=== PATIENT | male | born 1960 ===

== ENCOUNTER → 2021-09-19 | Outpatient (CLI) | payer OTHER ==
[~2021-09-19] MED LIST: CREAM; CYCL10 PO; HYDACE5325; IBUP800; IBUPROFEN200 MG PO; NAPR500 PO; OXYACE5T; OXYACE5T PO; Pepcid40 MG PO; Sucralfate1 GM PO
[2021-09-19 14:23] LABS: Alanine Aminotransfer (ALT/SGP 35 U/L (12-78); Albumin, Blood 3.9 g/dL (3.4-5.0); Alk Phos 99 U/L (50-136); Anion Gap 2 mmol/L (6-16); Aspartate Aminotrans (AST/SGOT 31 U/L (12-37); Bilirubin, Total 0.5 mg/dL (0.1-1.0); Blood Urea Nitrogen 15 mg/dL (8-24); CO2, Blood 30 mmol/L (21-32); Calcium, Blood 9.2 mg/dL (8.5-10.1); Chloride, Blood 109 mmol/L (98-108); Creatinine, Blood 0.94 mg/dL (0.60-1.20); Free Thyroxine 0.89 ng/dL (0.70-1.60); Globulin, Blood 3.9 g/dL (2.2-4.0); Glomerular Filtration Rate >60 (60-); Glucose, Blood 97 mg/dL (70-99); Sodium, Blood 141 mmol/L (136-145); Total Protein, Blood 7.8 g/dL (6.4-8.2)
[2021-09-19 14:24] LABS: CHOL/HDL RATIO 2.7; Cholesterol 153 mg/dL (50-200); HDL Cholesterol 56 mg/dL (>39); LDL/HDL RATIO 1.5; Low Density Lipoprotein Chol 82 mg/dL (0-110); Triglycerides 74 mg/dL (30-160); Very Low Density Lipoprot Chol 14 mg/dL (6-32)
== END | disposition home or self-care (01) ==
LOC: LAB 09:40 → LAB SHORT 09:40
PROVIDERS: Family Medicine
DX: K59.09 Other constipation (principal); R07.9 Chest pain, unspecified
CPT/HCPCS: 80053; 80061; 84439; 84443; 84481

== ENCOUNTER 2024-02-21 13:02 | Day surgery (SDC) | payer OTHER ==
[~2024-02-21] VITALS: Ht 190.5 cm; Wt 134.9 kg
[~2024-02-21 13:02] MED LIST changes: +Lactated Ringer's 1,000 ML IV ONE
[2024-02-21] MEDS ORDERED: BISA10S (13:17)
[2024-02-21] MEDS ORDERED: Prinivil10 MG (13:19)
[2024-02-21] MEDS ORDERED: GABA100 (13:19)
[2024-02-21 13:29] VITALS: BP 166/90
[2024-02-21] MEDS ORDERED: Lactated Ringer's 1,000 ML IV ONE (14:07)
--- NOTE | 2024-02-21 14:55 | NUR ---
02/21/24 7595 Pari Tomlinson PT REPORTED TO DR CHURCH THAT HIS HEART RATE OCCASIONALLY IS IN THE 180'S AND SHARED PICTURES OF HIS AT HOME BP MONITOR AND HEART RATE MONITOR. PT STATED THAT HE SOMETIMES FEELS THOUGH HE WILL "PASS OUT." CASE CANCELLED BY DR RICO AND PT REFERRED TO PCP FOR FURTHER WORK UP. PT VOICED UNDERSTANDING. DR BARAJAS ALSO ENCOURAGED PT TO CALL PCP TODAY TO BE SCHEDULED JOAO. IV DC'D BY RN. PT WALKED TO LOBBY.
== END 2024-02-21 14:35 | disposition home or self-care (01) ==
LOC: ORSCSDS 13:02
DX: R15.0 Incomplete defecation (principal); Z53.9 Procedure and treatment not carried out, unspecified reason
CPT/HCPCS: J7120